=== PATIENT | male | born 1945 | race Caucasian/White ===

== ENCOUNTER → 2020-05-07 | Outpatient (CLI) | payer MEDICARE, OTHER ==
--- NOTE | 2020-05-08 07:33 | CT ---
PROVIDED CLINICAL HISTORY/REASON FOR EXAM: Unspecified malignant neoplasm of skin, unspecified TECHNIQUE: Volumetric CT data of the brain was obtained without intravenous contrast. This exam was performed according to our departmental dose-optimization program, which includes automated exposure control, adjustment of the mA and/or kV according to patient size and/or use of iterative reconstruction technique. COMPARISON: November 25, 2019 FINDINGS: Similar age-related volume loss and chronic small vessel ischemic change. Similar operative changes involving the left calvarium and maxilla. 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 Similar serpiginous hyperattenuating material along the falx. Similar placement of the right frontal approach ventriculostomy catheter tip terminating in the left lateral ventricle. Septum pellucidum and third ventricle are midline. No acute infarction is evident by CT. No acute hemorrhage is present. No mass or mass effect is present. The visualized paranasal sinuses are unremarkable. IMPRESSION: No acute intracranial abnormality. Similar chronic and postoperative findings. Electronically signed by: Austyn Aiken MD 05/08/2020 7:[address] [facility]
--- NOTE | 2020-05-08 07:38 | CT ---
EXAM DESCRIPTION: Soft Tissue Neck CLINICAL HISTORY: 74 years Male, Localized enlarged lymph nodes TECHNIQUE: This exam was performed according to our departmental dose-optimization program, which includes automated exposure control, adjustment of the mA and/or kV according to patient size and/or use of iterative reconstruction technique. COMPARISON: Same day head CT FINDINGS: Redemonstrated operative changes involving the left calvarium and maxilla. The visualized paranasal sinuses are clear. The airway is patent. The trachea is midline. The thyroid gland is unremarkable. Visualized lung apices are clear. Intact ventriculostomy catheter. No suspicious mass, fluid collection or adenopathy. Atherosclerotic plaque in the carotid bulbs. No acute or suspicious osseous abnormality. Scattered degenerative changes present. IMPRESSION: No suspicious adenopathy identified. Electronically signed by: Austyn Aiken MD 05/08/2020 7:36 AM [facility]
== END ==
LOC: CT 09:42
PROVIDERS: ATTEND Dermatology
DX: C44.90 Unspecified malignant neoplasm of skin, unspecified (principal); R59.0 Localized enlarged lymph nodes; Z98.890 Other specified postprocedural states